=== PATIENT | female | born 1940 | race Caucasian/White ===

== ENCOUNTER 2017-08-04 09:18 | Inpatient (IN) | payer OTHER ==
[2017-07-06 13:09] VITALS: BMI 25.0
--- NOTE | 2017-07-06 13:42 | PAT Medication Instructions ---
Service Date Jul 06, 2017. Current Home Medication List Amlodipine (Norvasc), 5 MG PO QPM Aspirin (Aspirin Ec), 81 MG PO QPM Calcium Carbonate-Vitamin D (Oscal 500/200 D-3), 1 TAB PO NOON Calcium W/ Vitamins D & K (Viactiv), 1 TAB PO TID Fiber Laxative (Fiber Laxative), 1 TAB PO BID Hydrochlorothiazide (Hydrochlorothiazide), 1 TAB PO QAM Multiple Vitamins W/ Minerals (Centrum Adults), 1 TAB PO QAM Multiple Vitamins W/ Minerals (Hair/Skin/Nails), 1 CAP PO TID [place] 3 Fatty Acids-[place] 6 Fa ([place] 3-6-9 Complex), 1 CAP PO QAM Potassium Ext Rel (Klor-Con), 10 MEQ PO QAM Saccharomyces Boulardii (Probiotic), 1 CAP PO NOON Zolpidem Tartrate (Zolpidem Tartrate), 1 TAB PO HS PRN for Insomnia [Pre-Op Vitamin], 2 TAB PO QAM Medication Instructions For Your Scheduled Surgery - Hold the following medications 2 weeks prior to surgery: [place] 3 Fatty Acids-[place] 6 Fa ([place] 3-6-9 Complex), 1 CAP PO QAM - Hold the following medications the morning of surgery: [Pre-Op Vitamin], 2 TAB PO QAM Saccharomyces Boulardii (Probiotic), 1 CAP PO NOON Calcium Carbonate-Vitamin D (Oscal 500/200 D-3), 1 TAB PO NOON Calcium W/ Vitamins D & K (Viactiv), 1 TAB PO TID Fiber Laxative (Fiber Laxative), 1 TAB PO BID Hydrochlorothiazide (Hydrochlorothiazide), 1 TAB PO QAM Multiple Vitamins W/ Minerals (Centrum Adults), 1 TAB PO QAM Multiple Vitamins W/ Minerals (Hair/Skin/Nails), 1 CAP PO TID Potassium Ext Rel (Klor-Con), 10 MEQ PO QAM - Take the following medications as scheduled the night before surgery: Zolpidem Tartrate (Zolpidem Tartrate), 1 TAB PO HS PRN for Insomnia Calcium W/ Vitamins D & K (Viactiv), 1 TAB PO TID Fiber Laxative (Fiber Laxative), 1 TAB PO BID Multiple Vitamins W/ Minerals (Hair/Skin/Nails), 1 CAP PO TID Amlodipine (Norvasc), 5 MG PO QPM Aspirin (Aspirin Ec), 81 MG PO QPM NOTHING TO EAT OR DRINK AFTER MIDNIGHT If you have any questions please call us at [phone] or [phone] or [phone]
--- NOTE | 2017-07-06 14:27 | DIAGNOSTIC IMAGING REPORT ---
CHEST 2 VIEWS ROUTINE CLINICAL HISTORY: Preoperative chest COMPARISON STUDY: No previous studies for comparison. FINDINGS: The cardiac and mediastinal contours are normal. There is no evidence of focal pulmonary consolidation. There is no evidence of failure. No pleural effusions are visualized.[ There is minor thickening of the basal interstitial markings, finding which is likely chronic. IMPRESSION: No active disease in the chest. Electronically signed by: Bernardo Licea M.D. 07/06/2017 2:26 PM Dictated Date/Time: 07/06/2017 2:26 PM
[2017-07-06 14:35] LABS: BASO % 0.3 %; BASO ABS # 0.03 K/uL (0-0.2); EOS % 1.2 %; HEMATOCRIT 40.4 % (37-47); HEMOGLOBIN 13.9 g/dL (12.0-16.0); IG# 0.03 K/uL (0.00-0.02); LYMPH % 22.9 %; LYMPH ABS # 1.98 K/uL (1.2-3.4); MEAN CELL VOLUME 92.7 fL (80-100); MEAN CORPUSCULAR HEMOGLOBIN 31.9 pg (25-34); MEAN CORPUSCULAR HGB CONC 34.4 g/dl (32-36); MEAN PLATELET VOLUME 9.7 fL (7.4-10.4); MONO % 7.4 %; MONO ABS # 0.64 K/uL (0.11-0.59); NEUT % 67.9 %; NEUT ABS # 5.87 K/uL (1.4-6.5); PLATELET COUNT 226 K/uL (130-400); RED CELL DISTRIBUTION WIDTH CV 12.9 % (11.5-14.5); RED CELL DISTRIBUTION WIDTH SD 43.9 fL (36.4-46.3); WHITE BLOOD COUNT 8.65 K/uL (4.8-10.8)
[2017-07-06 14:43] LABS: PTT PATIENT 27.2 SECONDS (21.0-31.0)
[2017-07-06 14:49] LABS: ALBUMIN 3.8 gm/dl (3.4-5.0); CALCIUM 9.2 mg/dl (8.5-10.1); CREATININE 0.9 mg/dl (0.60-1.20); POTASSIUM 3.5 mmol/L (3.5-5.1)
[2017-07-07 07:25] LABS: HEMOGLOBIN A1C 5.6 % (4.5-5.6)
--- NOTE | 2017-07-07 14:48 | HISTORY & PHYSICAL EXAMINATION ---
DATE OF ADMISSION: 08/04/2017 CHIEF COMPLAINT: Right knee pain. HISTORY OF PRESENT ILLNESS: Agatha is a 77-year-old female with a 2-year history of right knee pain. The patient rates this pain a 9/10. She has pain with her daily activities. She has limited standing and walking tolerance. Pain is worse with weightbearing. The patient has had injections, bracing and home exercise program and physical therapy, without relief. She has failed conservative treatment and is scheduled for a right knee replacement. PAST MEDICAL HISTORY: Hypertension. She denies heart disease, diabetes or DVT. PAST SURGICAL HISTORY: Tonsillectomy and left ankle ORIF. SOCIAL HISTORY: The patient denies alcohol or tobacco use. She lives in a 2-ratna home. He is and retired. FAMILY HISTORY: Negative for DVT. MEDICATIONS: Amlodipine 5 mg, zolpidem 5 mg, aspirin 81 mg, Centrum Silver, hydrochlorothiazide 12.5 mg, Klor-Con 10 mEq, [place]-3, Viactiv 500 mg. ALLERGIES: None. REVIEW OF SYSTEMS: See HPI. Ten other systems reviewed, all negative. PHYSICAL EXAMINATION: VITAL SIGNS: Height 5 foot 5 inches. Weight 154 pounds. BMI 26. GENERAL: This is a well-developed, well-nourished female who is alert and oriented x3. Mood and affect are appropriate. HEENT: Normocephalic, atraumatic. Mucous membranes are moist and intact. NECK: Supple without lymphadenopathy. HEART: Regular rate and rhythm without murmurs, rubs or gallops. LUNGS: Clear to auscultation without wheezes or rhonchi. ABDOMEN: Soft and nontender. Bowel sounds are equal and active. EXTREMITIES: No ecchymosis, redness or warmth. She has neutral alignment. Range of motion is from 3-110 degrees with +1 laxity. She is neurovascularly intact with +5/5 strength. X-RAY EXAMINATION: AP and lateral views show joint space narrowing and osteophyte formation. IMPRESSION: Degenerative joint disease, right knee. PLAN: The patient will be admitted for a right total knee arthroplasty. We will plan on aspirin for DVT prophylaxis. The patient is ongoing use [facility] for home physical therapy and her referral has been placed. [facility]
[~2017-08-04] VITALS: Ht 165.1 cm; Wt 70.1 kg
[2017-08-04] VITALS (7 sets, daily range): BP systolic 109–152; BP diastolic 66–75; PULSE 76–95; TEMP 36.3–36.9; O2SAT 93–98; Ht 165.1 cm; Wt 70.1 kg
--- NOTE | 2017-08-04 07:02 | History & Physical Bridge Note ---
H&P Re-Evaluation Bridge Note: I have examined the patient, reviewed the History & Physical and in the interval since the performance of the History & Physical I have noted the following changes of clinical significance: No changes noted
[~2017-08-04 09:18] MED LIST: ACETAMINOPHEN 500 MG TAB PO SCH; AMLO-110 PO; ASPI81TA28 PO; BUPIVACAINE 0.25% 30 ML VIAL ONE; BUPIVACAINE 0.5 % 5 MG/1 ML PF 10ML VIAL ONE; CALC200T PO; CALC8.5C PO; CEFAZOLIN 1000MG IV PUSH 5 ML IV SCH; CeleBREX 200 MG CAP PO SCH; DEXAMETHASONE 4 MG TAB PO SCH; FAMOTIDINE 20 MG TAB PO SCH; FIBER PO; GABAPENTIN 300 MG CAP PO SCH; HYDR12.55 PO; LACTATED RINGER'S 1000ML 1,000 ML IV SCH; LACTATED RINGER'S 1000ML 500 ML IV SCH; LACTATED RINGER'S 1000ML IV SCH; METOCLOPRAMIDE HCL 10 MG TAB PO SCH; MULT-610 PO; MULT1CAP52 PO; OMEG1CAP71 PO; POTA20TA16 PO; ROPIVACAINE 5MG/ML 30 ML 150 MG, BUPIVACAINE 0.5% MPF INJ 30 ML, EpINEphrine HCL INJ 0.... INFIL SCH; SACC250C11 PO; ZOLP5TAB6 PO; [UNRECOGNIZED DRUG - OTHER] PO
[2017-08-04] MEDS ORDERED: MIDAZOLAM HCL 1 MG/ML 2ML VIAL ONE ×2 (12:17→13:34)
[2017-08-04] MEDS ORDERED: ORTHO JOINT ANESTHETIC ONE (12:54)
[2017-08-04] MEDS ORDERED: POVIDONE-IODINE OP SOLN 30 ML BTL ONE (12:54)
[2017-08-04] MEDS ORDERED: BACITRACIN 50000 UNIT VIAL ONE (12:54)
[2017-08-04] MEDS: TRANEXAMIC ACID INJ 1,000 MG in SYRINGE 0 ML IV SCH ×2 (13:13→16:30)
[2017-08-04] MEDS ORDERED: EpHEDrine SULFATE INJ 50 MG/ML AMP IV PRN (13:45)
[2017-08-04] MEDS ORDERED: ATROPINE SULFATE 0.1 MG/ML 5ML SYR IV PRN (13:45)
[2017-08-04] MEDS ORDERED: PHENYLEPHRINE 100MCG/ML 5ML SYR ONE (13:55)
[2017-08-04] MEDS ORDERED: LIDOCAINE HCL 2% 2 ML VIAL (20MG/ML) ONE (13:55)
[2017-08-04] MEDS ORDERED: PROPOFOL IV EMULSION 10 MG/ML 20 ML VIAL IV ONE (13:55)
--- NOTE | 2017-08-04 14:31 | [facility] Operative Report ---
Operative Report Operative Date Aug 04, 2017. Pre-Operative Diagnosis Right knee degenerative joint disease Post-Operative Diagnosis Right knee degenerative joint disease Procedure(s) Performed Right Total Knee Arthroplasty utilizing Roca & Nephew journey 2 patient matched total knee arthroplasty size 5 femur 3 tibia 13 poly-[address] Ireland Enroute Controller Surgeon(s) Ky Mcmillan PA-C Estimated Blood Loss 5 cc Findings Patient presents severe end-stage DJD varus alignment [id number] changes subchondral cystic changes osteophytes marginal osteophytes and sclerosis she will Nourse wants to conservative therapy Specimens A: right knee bone and tissue Complication(s) None Disposition Recovery Room / PACU Indications Patient presents with severe end-stage tricompartmental degenerative joint disease nonresponsive to conservative therapy for right total knee arthroplasty she's failed attempts at injections corticosteroid injections viscous supplementations relative rest activity modification presents for total knee arthroplasty Description of Procedure After proper prepping and draping of the Right lower extremity anterior midline incision was made over the region of the extensor extensor mechanism after meticulous hemostasis was obtained and maintained in subcutaneous tissues a medial parapatellar incision was made The patella was subluxed lateralward the medial lateral gutter were cleaned from any hypertrophic synovitis and scar tissue of the distal femoral block was placed and the distal femoral osteotomy cut was made subsequently the chamfers anterior and posterior osteotomy cuts were made utilizing the 4-in-1 block the tibia was subsequently subluxed anteriorward medial and ateral meniscal remnants were excised in their entirety remnants of the anterior and posterior cruciate ligaments were excised in their entirety excellent exposure of the proximal tibia was obtained the tibial osteotomy guide was placed on the proximal tibial osteotomy cut was made once again the knee was irrigated with copious amounts of sterile saline solution the patella was subsequently everted lateralward thickened scar tissue around the patella was removed the patella was subsequently cut utilizing a freehand technique and was drilled prepared for final preparation and placement of patella socially flexion-extension gaps were checked and the equal and symmetric trials were placed to the appropriate femoral and tibial trials with poly-spacer being placed for equal flexion and extension gaps and full range of motion including extension to 0 and flexion to 140 the trial components after having been taken to recovery range of motion was subsequently removed meticulous hemostasis was obtained and maintained subsequently a knee block injection of joint cocktail including ropivacaine 0.5% 150 mg. Bupivacaine 0.5 % epinephrine 1-200,030 mL's toradol 30 mg dexamethasone 4 mg ketamine 10 mg clonidine 100 micrograms normal saline solution 30 mg was infiltrated into the soft tissues of the posterior knee medial lateral gutters and periosteal synovium special attention was paid to protect neurovascular structures at all times subsequently trial components having been removed the knee was irrigated with sterile saline solution. debris was removed the proximal tibia was subsequently prepared and was made ready for the placement of the tibial component tibial component was also cemented and tamped into position the femoral component was subsequently placed and cemented in the position the patellar component was subsequently cemented in position because hemostasis once again obtained and maintained wound having been thoroughly irrigated with debridement and debridement lavage was performed as well as a medial parapatellar incision closed with #1 Vicryl in interrupted fashion subcutaneous was closed with #2 Vicryl skin was closed with skin clips. PA-C was necessary for prepping and drapping as well as wound closure of deep fascia Sub cutaneous tissue and skin and was necessary for the case. A sterile compressive dressing was placed patient was taken to recovery in stable condition of report dictated by Beka I attest to the content of the Intraoperative Record and any orders documented therein. Any exceptions are noted below. I attest to the content of the Intraoperative Record and any orders documented therein. Any exceptions are noted below.
[2017-08-04] MEDS ORDERED: KETOROLAC TROMETHAMINE 15 MG/ML VIAL IV. PRN (15:15)
[2017-08-04] MEDS ORDERED: MoRPHine SULFATE 2 MG/ML CARP IV PRN ×2 (15:15→16:45)
[2017-08-04] MEDS ORDERED: ALUMINUM/MAGNESIUM/SIMETH (MAALOX MAX) 30 ML UDC PO PRN (15:15)
[2017-08-04] MEDS ORDERED: MAGNESIUM HYDROXIDE SUSP 30 ML UDC PO PRN (15:15)
[2017-08-04] MEDS ORDERED: BISACODYL 10 MG SUPP PR PRN (15:15)
[2017-08-04] MEDS ORDERED: ZOLPIDEM TARTRATE 5 MG TAB PO PRN (15:15)
[2017-08-04] MEDS ORDERED: ONDANSETRON INJ 2 MG/ML 2 ML VIAL IV PRN (15:15)
[2017-08-04] MEDS ORDERED: TRAMADOL HCL 50 MG TAB PO PRN (15:15)
[2017-08-04] MEDS ORDERED: SOD PHOSPHATE/SOD BIPHOSPHATE ENEMA 132 ML BTL PR PRN (15:15)
--- NOTE | 2017-08-04 15:16 | Anesthesiology Progress Note ---
Anesthesia Post Op Note Date & Time Aug 04, 2017 at 15:15 Vital Signs Pain Intensity: 4 Vital Signs Past 12 Hours Date Time Temp Pulse Resp B/P (MAP) Pulse Ox O2 Delivery O2 Flow Rate FiO2 08/04/17 10:00 36.4 84 18 152/72 94 Room Air Notes Mental Status: alert / awake / arousable, participated in evaluation Pt Amnestic to Procedure: Yes Nausea / Vomiting: adequately controlled Pain: adequately controlled Airway Patency, RR, SpO2: stable & adequate BP & HR: stable & adequate Hydration State: stable & adequate Neuraxial Anesthesia: was administered, sensory block is resolving Anesthetic Complications: no major complications apparent
--- NOTE | 2017-08-04 15:47 | DIAGNOSTIC IMAGING REPORT ---
RIGHT KNEE 2 VIEWS CLINICAL HISTORY: Postop knee arthroplasty COMPARISON: None. DISCUSSION: There are postsurgical changes of a total right knee arthroplasty. The femoral and tibial components appear well seated. Overlying surgical drains are evident. There is air within soft tissues consistent with recent surgery. IMPRESSION: Postsurgical changes of a total right knee arthroplasty. Electronically signed by: Bernardo Licea M.D. 08/04/2017 3:46 PM Dictated Date/Time: 08/04/2017 3:45 PM
[2017-08-04] MEDS ORDERED: MoRPHine SULFATE 10 MG/ML CARP/VIAL IV PRN (16:45)
[2017-08-04] MEDS ORDERED: MoRPHine SULFATE 4 MG/ML 1 ML CARP\\VIAL IV PRN (16:45)
[2017-08-04] MEDS: D5W AND 1/2NSS + 20MEQ KCL 1,000 ML IV SCH (19:24)
[2017-08-04] MEDS: AMLODIPINE BESYLATE 5 MG TAB PO SCH (21:03)
[2017-08-04] MEDS: SENNA 8.6 MG TAB PO SCH (21:03)
[2017-08-04] MEDS: ASPIRIN 81 MG ECTAB PO SCH (21:03)
[2017-08-04] MEDS: DOCUSATE SODIUM 100 MG CAP PO SCH (21:03)
[2017-08-04] MEDS: CALCIUM POLYCARBOPHIL 1 TAB PO SCH (21:03)
[2017-08-04] MEDS: CEFAZOLIN IV 1,000 MG in SYRINGE 0 ML IV SCH (22:11)
[2017-08-04] MEDS: ACETAMINOPHEN 500 MG TAB PO SCH (22:12)
[2017-08-05] MEDS ORDERED: NURSING VERBAL MED ORDER ONE (01:45)
[2017-08-05 03:22] VITALS: BP 119/72; PULSE 67; TEMP 36.7; O2SAT 92
[2017-08-05] MEDS: ACETAMINOPHEN 500 MG TAB PO SCH ×3 (05:14→21:40)
[2017-08-05] MEDS: CEFAZOLIN IV 1,000 MG in SYRINGE 0 ML IV SCH (05:15)
[2017-08-05] MEDS: D5W AND 1/2NSS + 20MEQ KCL 1,000 ML IV SCH (05:15)
[2017-08-05 06:47] LABS: HEMATOCRIT 36.3 % (37-47); MEAN CELL VOLUME 93.3 fL (80-100); MEAN CORPUSCULAR HEMOGLOBIN 30.8 pg (25-34); MEAN CORPUSCULAR HGB CONC 33.1 g/dl (32-36); MEAN PLATELET VOLUME 9.4 fL (7.4-10.4); PLATELET COUNT 225 K/uL (130-400); RED CELL DISTRIBUTION WIDTH SD 43.7 fL (36.4-46.3); WHITE BLOOD COUNT 17.78 K/uL (4.8-10.8)
[2017-08-05 07:09] VITALS: BP 118/69; PULSE 71; TEMP 36.3; O2SAT 96
[2017-08-05 07:16] LABS: CALCIUM 8.6 mg/dl (8.5-10.1); CREATININE 1.03 mg/dl (0.60-1.20); POTASSIUM 4.2 mmol/L (3.5-5.1)
--- NOTE | 2017-08-05 07:29 | Orthopedic Progress Note ---
Orthopedic Progress Note Date of Service Aug 05, 2017. Subjective Post OP Day: 1 Reports: feeling well, pain controlled w PO medications, Denies: complaints, chest pain, SOB, nausea / vomiting, light headedness, calf pain Objective calves soft nontender, N/V intact, capillary refill less than 2 sec., dressing C /D/I, A&O x3, toes mobile, hemovac drainage (125cc/ 8 hours) Date Time Temp Pulse Resp B/P (MAP) Pulse Ox O2 Delivery O2 Flow Rate FiO2 08/05/17 07:09 36.3 71 18 118/69 (85) 96 Room Air 08/05/17 03:22 36.7 67 15 119/72 (88) 92 Room Air 08/04/17 23:19 36.3 76 16 110/66 (81) 93 Room Air 08/04/17 22:30 Room Air 08/04/17 18:50 36.5 95 16 125/72 (89) 95 Room Air 08/04/17 17:50 36.3 92 18 136/75 (95) 94 Room Air 08/04/17 17:01 36.6 80 16 121/72 (88) 98 Nasal Cannula 2.0 08/04/17 16:27 36.7 79 16 109/66 (80) 97 Nasal Cannula 2.0 08/04/17 16:20 Nasal Cannula 2.0 08/04/17 15:50 36.9 79 14 111/67 (82) 94 Nasal Cannula 2.0 08/04/17 15:50 Nasal Cannula 2.0 08/04/17 15:50 Nasal Cannula 2.0 08/04/17 15:35 73 12 118/59 97 Nasal Cannula 2 08/04/17 15:25 36.2 72 15 118/55 97 Nasal Cannula 2 08/04/17 15:15 72 15 116/65 98 Nasal Cannula 2 08/04/17 15:07 36.0 69 16 117/57 94 Nasal Cannula 2 08/04/17 10:00 36.4 84 18 152/72 94 Room Air Laboratory Results 24 Hours: Test 08/05/17 06:26 Hematocrit 36.3 % Hemoglobin 12.0 g/dL Prothromb Time International Ratio 1.0 Prothrombin Time 10.8 SECONDS Assessment & Plan Assessment: POD #1 s/p Right TKA -pt/ot -dvt proph with [facility]/scd/asa -plan for d/c home with HHPT, likely Wednesday Discharge Planning Discharge Planning: home with home health DVT Prophylaxis: TEDs, SCDs, ASA
[2017-08-05] MEDS: DOCUSATE SODIUM 100 MG CAP PO SCH ×2 (08:56→20:33)
[2017-08-05] MEDS: ASPIRIN 81 MG ECTAB PO SCH ×2 (08:56→20:33)
[2017-08-05] MEDS: CALCIUM POLYCARBOPHIL 1 TAB PO SCH ×2 (08:57→20:33)
[2017-08-05] MEDS: MULTIVITAMIN TAB PO SCH (08:57)
[2017-08-05] MEDS: PANTOprazole SOD 40 MG TAB PO SCH (08:57)
[2017-08-05] MEDS: CALCIUM 600MG + VIT D 400 IU TAB PO SCH (08:57)
[2017-08-05] MEDS: OXYCODONE HCL IR 5 MG TAB (IMMEDIATE RELEASE) PO PRN ×3 (09:00→19:20)
[2017-08-05] MEDS ORDERED: POTASSIUM CHLORIDE 20 MEQ TABCR PO SCH (09:00)
[2017-08-05 12:21] VITALS: BP 109/67; PULSE 69; TEMP 36.3; O2SAT 96
--- NOTE | 2017-08-05 12:39 | Discharge Instructions ---
Discharge Instructions Date of Service Aug 05, 2017. Admission Reason for Admission: Right Knee Osteoarthritis Discharge Discharge Diagnosis / Problem: right knee osteoarthritis Discharge Goals Goal(s): Decrease discomfort, Improve function, Increase independence Activity Recommendations Activity Limitations: as noted below Weightbearing Status: Right weightbearing (as tolerated) . Instructions / Follow-Up Instructions / Follow-Up ACTIVITY RECOMMENDATIONS: SELF CARE INSTRUCTIONS AFTER TOTAL KNEE REPLACEMENT A. You may need to continue a physical therapy program after discharge from the hospital. There are several options available to you. Your doctor will assist you in selecting the best one for you. 1. An out-patient facility 2 to 3 times a week for therapy or home therapy. 2. Continue working on all exercises taught to you in the hospital. Your goals should be to increase bending of your knee to 90 degrees and beyond and to fully straighten your knee. B. You may progress at your own pace from walking with a walker or crutches to a cane; then to no assistive devices. C. Make walking a part of your daily routine. Be up as much as comfortable with rest periods throughout the day. Rest with leg elevation is very important. Use the ice wrap frequently for the first 3-4 weeks. D. There are no restrictions on activities. You may ride in a car, shop, participate in cut order hand and all social activities. E. Wear the long elastic stockings (CHRISTIAN hose) 20 hours a day for 2 weeks after surgery. They can be removed several times a day for laundering and for a bath. F. You may shower, no tub baths until cleared by your doctor. SPECIAL CARE INSTRUCTIONS: VERY IMPORTANT TO READ AND REVIEW A. There are a few signs you need to watch for after you are home. Call [facility] if you notice any of the followin. Increased severe knee pain. Some pain is expected especially when you exercise. 2. Increased swelling in your leg or knee; pain or swelling of the calf muscle in either lower leg. 3. Any fluid drainage from the incision. 4. Shortness of breath or chest pain. B. Please call [facility] at if you have any concerns or questions about your operation or recovery. The doctor or his nurse will return your call promptly. C. You must take antibiotics before dental work, bladder, bowel or other surgery. Your doctor will provide you with a permanent care to carry describing this precaution. IMPORTANT: * REMEMBER TO TAKE ASPIRIN, 81 MG, TWICE DAILY FOR 4 WEEKS UNLESS OTHERWISE DIRECTED. THIS IS YOUR BLOOD THINNER. * HIGH RISK PATIENTS MAY BE PRESCRIBED A STRONGER BLOOD THINNER. THIS WILL BE PROVIDED AT DISCHARGE. * CALL IF INCREASED PAIN, REDNESS, DRAINAGE OR FEVER GREATER THAT 101. * WEAR CHRISTIAN HOSE 20 HOURS PER DAY FOR 2 WEEKS. * DERMABOND Prineo- This is a mesh tape dressing that is covered with glue. It should remain in place until the incision is properly healed, usually 10-14 days. This dressing is designed to naturally slough off. You may trim the excess mesh tape as it peels off. Incision may be briefly wet in a shower. Dry immediately by blotting with a clean, dry towel. Do not bath or swim until instructed by your doctor. Do not scratch, rub, or pick at the dressing. Do not apply any topical ointments or lotions until dressing is completely removed and/or instructed by your doctor. There may be a small piece of suture material at one end of your incision. Do not pull or trim this. If it is bothersome or catching on clothing, you may cover it with a band-aid. FOLLOW UP VISIT: If appointment is not already scheduled: Please call [facility] to make a follow-up appointment for 2 weeks after your surgery at . Current Hospital Diet Patient's current hospital diet: Regular Diet Discharge Diet Recommended Diet: Regular Diet Procedures Procedures Performed: Right Total Knee Arthroplasty utilizing Roca & Nephew journey 2 patient matched total knee arthroplasty size 5 femur 3 tibia 13 poly-29 oval patella Pending Studies Studies pending at discharge: no Laboratory Results Hemoglobin A1c Test 07/06/17 13:53 Range/Units Estimated Average Glucose 114 mg/dl Hemoglobin A1c 5.6 4.5-5.6 % Medical Emergencies . Who to Call and When: Medical Emergencies: If at any time you feel your situation is an emergency, please call 911 immediately. . Non-Emergent Contact Non-Emergency issues call your: Primary Care Provider, Surgeon . "Provider Documentation" section prepared by Ky Mcmillan. . VTE Core Measure Inpt VTE Proph given/why not?: Other Anticoagulation (ASA 81mg po bid x 1month) , TTamra Stockrip, SCD's [place] Drug Monitoring Program Search Results: patient reviewed within database, no issues identified
[2017-08-05 15:30] VITALS: BP 106/63; PULSE 69; TEMP 36.5; O2SAT 95
[2017-08-05] MEDS: CeleBREX 200 MG CAP PO SCH (20:33)
[2017-08-05] MEDS: AMLODIPINE BESYLATE 5 MG TAB PO SCH (21:41)
[2017-08-05] MEDS: SENNA 8.6 MG TAB PO SCH (21:41)
[2017-08-05 23:16] VITALS: BP 125/73; PULSE 71; TEMP 36.2; O2SAT 98
[2017-08-06] MEDS: ACETAMINOPHEN 500 MG TAB PO SCH (05:17)
[2017-08-06 07:12] VITALS: BP 119/67; PULSE 70; TEMP 36.6; O2SAT 96
[2017-08-06] MEDS: PANTOprazole SOD 40 MG TAB PO SCH (08:11)
[2017-08-06] MEDS: CALCIUM 600MG + VIT D 400 IU TAB PO SCH (08:11)
[2017-08-06] MEDS: MULTIVITAMIN TAB PO SCH (08:11)
--- NOTE | 2017-08-06 08:19 | Orthopedic Progress Note ---
Orthopedic Progress Note Date of Service Aug 06, 2017. Subjective Post OP Day: 2 Reports: feeling well, Denies: chest pain, SOB, nausea / vomiting, light headedness, calf pain Objective calves soft nontender, N/V intact, capillary refill less than 2 sec., dressing C /D/I, A&O x3, toes mobile Date Time Temp Pulse Resp B/P (MAP) Pulse Ox O2 Delivery O2 Flow Rate FiO2 08/06/17 07:12 36.6 70 17 119/67 (84) 96 Room Air 08/05/17 23:40 Room Air 08/05/17 23:16 36.2 71 15 125/73 (90) 98 Room Air 08/05/17 15:30 36.5 69 18 106/63 (77) 95 Room Air 08/05/17 15:10 Room Air 08/05/17 12:21 36.3 69 17 109/67 (81) 96 Room Air Assessment & Plan Assessment: POD #2 s/p Right TKA -pt/ot -dvt proph with [facility]/scd/asa -plan for d/c home with HHPT, likely Wednesday. DC HOME TODAY WITH [facility]. Discharge Planning Discharge Planning: home with home health DVT Prophylaxis: TEDs, SCDs, ASA
[2017-08-06] MEDS ORDERED: ASPI81TA28 PO (08:20)
[2017-08-06] MEDS ORDERED: CLB200 PO (08:21)
[2017-08-06] MEDS ORDERED: ACET-24 PO (08:21)
[2017-08-06] MEDS ORDERED: ONDA8TAB6 PO (08:21)
[2017-08-06] MEDS ORDERED: RXC5 PO (08:21)
[2017-08-06] MEDS: OXYCODONE HCL IR 5 MG TAB (IMMEDIATE RELEASE) PO PRN (08:27)
[2017-08-06] MEDS ORDERED: POTASSIUM CHLORIDE 10 MEQ TABCR PO SCH (09:00)
[2017-08-06] MEDS: ASPIRIN 81 MG ECTAB PO SCH (09:00)
[2017-08-06] MEDS: CeleBREX 200 MG CAP PO SCH (09:00)
[2017-08-06] MEDS: CALCIUM POLYCARBOPHIL 1 TAB PO SCH (09:00)
[2017-08-06] MEDS: DOCUSATE SODIUM 100 MG CAP PO SCH (10:30)
[2017-08-06 11:16] VITALS: BP 119/67; PULSE 70; TEMP 36.6; O2SAT 96
--- NOTE | 2017-08-08 16:14 | Discharge Summary ---
Orthopedic Discharge Summary Admission Date/Reason Aug 04, 2017 at 11:59 Right Knee Osteoarthritis. Discharge Date/Disposition Aug 06, 2017 Home with services Diagnosis Principal Diagnosis: right knee osteoarthritis Procedure(s) Performed Right Total Knee Arthroplasty utilizing Roca & Nephew [place] 2 patient matched total knee arthroplasty size 5 femur 3 tibia 13 poly-29 oval patella Consultations NONE Medication Reconciliation New Medications: Ondansetron Hcl (Zofran) 8 Mg Tab 8 MG PO Q8 PRN for Nausea, #20 TAB Acetaminophen (Sb Non-Aspirin Extra Stre) 500 Mg Tab 1000 MG PO Q8 for 30 Days, #180 TAB Celecoxib (Celebrex) 200 Mg Cap 200 MG PO BID, #60 CAP Oxycodone HCl (Oxycodone HCl) 5 Mg Tab 5-10 MG PO Q4H PRN for Pain, #60 TAB Changed Medications: Aspirin (Aspirin Ec) 81 Mg Tab 81 MG PO BID for 30 Days (Changed from: QPM) Continued Medications: Amlodipine (Norvasc) 5 Mg Tab 5 MG PO QPM, TAB Calcium Carbonate-Vitamin D (Oscal 500/200 D-3) 1 Tab Tab 1 TAB PO NOON Calcium W/ Vitamins D & K (Viactiv) 1 Chw Chw 1 TAB PO TID Fiber Laxative (Fiber Laxative) Ea 1 TAB PO BID Hydrochlorothiazide (Hydrochlorothiazide) 12.5 Mg Tab 1 TAB PO QAM for 90 Days, #90 TAB 3 Refills Multiple Vitamins W/ Minerals (Centrum Adults) 1 Tab Tab 1 TAB PO QAM Multiple Vitamins W/ Minerals (Hair/Skin/Nails) 1 Cap Cap 1 CAP PO TID [place] 3 Fatty Acids-[place] 6 Fa ([place] 3-6-9 Complex) 1 Cap Cap 1 CAP PO QAM Potassium Ext Rel (Klor-Con) 20 Meq Tabcr 10 MEQ PO QAM, TAB Saccharomyces Boulardii (Probiotic) 250 Mg Cap 1 CAP PO NOON Zolpidem Tartrate (Zolpidem Tartrate) 5 Mg Tab 1 TAB PO HS PRN for Insomnia for 30 Days, #30 TAB [Pre-Op Vitamin] () 2 TAB PO QAM Admission Physical Exam As per Admitting History & Physical. Hospital Course Patient was a same day admission after undergoing a successful right TKA. she tolerated the procedure well. Post-operatively, her activity was progressed and well tolerated. Please refer to daily progress notes and PT notes for complete details. After exam on 08/06/17, patient felt to be stable for discharge home with HHPT. Patient will f/u in the office in 2 weeks for further evaluation including x-rays and incision check, sooner if having any issues or concerns. Below are pertinent labs/studies during their hospital stay: Last Vital Signs Documentation Date Time Temp Pulse Resp B/P (MAP) Pulse Ox O2 Delivery O2 Flow Rate FiO2 08/06/17 11:16 36.6 70 17 96 Room Air 08/06/17 07:12 119/67 (84) 08/04/17 17:01 2.0 Last Resulted CBC 08/05/17 06:26 Last Resulted BMP 08/05/17 06:26 Discharge Instructions ACTIVITY RECOMMENDATIONS: SELF CARE INSTRUCTIONS AFTER TOTAL KNEE REPLACEMENT A. You may need to continue a physical therapy program after discharge from the hospital. There are several options available to you. Your doctor will assist you in selecting the best one for you. 1. An out-patient facility 2 to 3 times a week for therapy or home therapy. 2. Continue working on all exercises taught to you in the hospital. Your goals should be to increase bending of your knee to 90 degrees and beyond and to fully straighten your knee. B. You may progress at your own pace from walking with a walker or crutches to a cane; then to no assistive devices. C. Make walking a part of your daily routine. Be up as much as comfortable with rest periods throughout the day. Rest with leg elevation is very important. Use the ice wrap frequently for the first 3-4 weeks. D. There are no restrictions on activities. You may ride in a car, shop, participate in crop puller and all social activities. E. Wear the long elastic stockings (CHRISTIAN hose) 20 hours a day for 2 weeks after surgery. They can be removed several times a day for laundering and for a bath. F. You may shower, no tub baths until cleared by your doctor. SPECIAL CARE INSTRUCTIONS: VERY IMPORTANT TO READ AND REVIEW A. There are a few signs you need to watch for after you are home. Call [facility] if you notice any of the followin. Increased severe knee pain. Some pain is expected especially when you exercise. 2. Increased swelling in your leg or knee; pain or swelling of the calf muscle in either lower leg. 3. Any fluid drainage from the incision. 4. Shortness of breath or chest pain. B. Please call [facility] at if you have any concerns or questions about your operation or recovery. The doctor or his nurse will return your call promptly. C. You must take antibiotics before dental work, bladder, bowel or other surgery. Your doctor will provide you with a permanent care to carry describing this precaution. IMPORTANT: * REMEMBER TO TAKE ASPIRIN, 81 MG, TWICE DAILY FOR 4 WEEKS UNLESS OTHERWISE DIRECTED. THIS IS YOUR BLOOD THINNER. * HIGH RISK PATIENTS MAY BE PRESCRIBED A STRONGER BLOOD THINNER. THIS WILL BE PROVIDED AT DISCHARGE. * CALL IF INCREASED PAIN, REDNESS, DRAINAGE OR FEVER GREATER THAT 101. * WEAR CHRISTIAN HOSE 20 HOURS PER DAY FOR 2 WEEKS. * YOU MAY HAVE A LARGE BAND-AID LIKE DRESSING (SILVERON). THIS WILL REMAIN ON YOUR INCISION FOR 7 DAYS, THEN CAN BE REMOVED. IF INCISION IS LEAKING THROUGH DRESSING, CALL THE OFFICE . FOLLOW UP VISIT: If appointment is not already scheduled: Please call [facility] to make a follow-up appointment for 2 weeks after your surgery at .
== END 2017-08-06 12:24 | disposition home health service (06) | DRG 470 ==
LOC: C.ACU 09:18 → C.MSW 11:59 → ENRESERV 15:32 → C.MSN 17:54
PROVIDERS: ADMIT Orthopaedic Surgery; ATTEND Orthopaedic Surgery
PROC: 0SRT0J9 Replacement of Right Knee Joint, Femoral Surface with Synthetic Substitute, Cemented, Open Approach (ICD-10-PCS; principal; 2017-08-04 12:15)
DX: M17.11 Unilateral primary osteoarthritis, right knee (principal); I10 Essential (primary) hypertension; Z79.82 Long term (current) use of aspirin